=== PATIENT | female | born 1970 | race Caucasian/White ===

== ENCOUNTER 2017-04-06 00:58 | Inpatient (IN) | payer OTHER ==
[~2017-04-06] VITALS: Ht 165.1 cm; Wt 104.9 kg
[~2017-04-06 00:58] MED LIST: CALC200T3 PO; HYDR-2666 PO; IBUP200T77 PO
[2017-04-06 02:05] LABS: BASO # 0.3 x10^3/uL (0.0-0.2); BASO % 1 % (0-3); EOS % 1 % (0-3); HEMATOCRIT 44.9 % (36.0-47.0); HEMOGLOBIN 15.3 g/dL (12.0-15.5); LYMPH # 5.7 x10^3/uL (1.0-4.8); LYMPH % 25 % (24-48); MEAN CORPUSCULAR HEMOGLOBIN 32 pg (25-35); MEAN CORPUSCULAR HGB CONC 34 g/dL (31-37); MEAN CORPUSCULAR VOLUME 94 fL (79-100); MONO % 7 % (0-9); NEUT % 66 % (31-73); PLATELET COUNT 353 x10^3/uL (140-400); RED BLOOD COUNT 4.76 x10^6/uL (3.50-5.40); WHITE BLOOD COUNT 23.1 x10^3/uL (4.0-11.0)
[2017-04-06 02:33] LABS: BILIRUBIN,URINE NEGATIVE (NEG); GLUCOSE,URINE NEGATIVE (NEG); NITRITE,URINE NEGATIVE (NEG); PH,URINE 5.5; PROTEIN,URINE 100 mg/dL (NEG-TRACE)
[2017-04-06 02:35] LABS: RBC,URINE TNTC /HPF (0-2)
[2017-04-06 02:35] LABS: CALCIUM 8.6 mg/dL (8.5-10.1); CREATININE 0.7 mg/dL (0.6-1.0); GFR 90.9; POTASSIUM 3.4 mmol/L (3.5-5.1)
[2017-04-06 02:36] LABS: BACTERIA,URINE FEW /HPF (0-FEW); SQUAMOUS EPITHELIAL CELL,UR FEW /LPF; WBC,URINE >40 /HPF (0-4)
[2017-04-06 02:41] LABS: ALBUMIN 3.3 g/dL (3.4-5.0); ALBUMIN/GLOBULIN RATIO 0.9 (1.0-1.7); TOTAL BILIRUBIN 0.3 mg/dL (0.2-1.0); TOTAL PROTEIN 6.9 g/dL (6.4-8.2)
--- NOTE | 2017-04-06 03:18 | RAD ---
PROCEDURE CT abdomen pelvis without contrast. HISTORY Bilateral flank and lower abdominal pain. TECHNIQUE Helical CT imaging of the abdomen and pelvis is performed without IV or oral contrast. PQRS: One or more the following individualized dose reduction techniques were utilized for the study: 1. Automated exposure control. 2. Adjustment of the mA and/or kV according to patient size. 3. Use of iterative reconstruction technique. COMPARISON CT abdomen and pelvis with and without contrast, June 27, 2016. FINDINGS Stable 5 millimeter nodule left lower lobe, image 12. Lung bases otherwise clear. Cardiac size normal. Cholecystectomy. The liver, spleen, pancreas, and right adrenal gland are normal. Stable left adrenal adenoma measuring up to 3.6 cm. No renal, ureteral, or bladder calculus. No hydronephrosis or perinephric stranding. Stomach unremarkable. Tiny fat containing umbilical hernia. No dilated small bowel. The appendix is normal. There may be mild wall thickening in the transverse and descending colon and sigmoid colon. Portions of colon not well distended. No surrounding inflammation is seen. No abdominal adenopathy or free fluid. There are bilateral fallopian tube occlusion devices. Uterus appears stable. There is fluid density in the vagina, nonspecific. No pelvic free fluid. Vacuum disc phenomenon L5/S1. IMPRESSION 1. Cannot exclude mild wall thickening in the transverse, descending, and sigmoid colon. There may be mild colitis, infectious or inflammatory bowel disease. 2. Fluid density distends the vagina, nonspecific. 3. No obstructive uropathy. 4. Stable left adrenal adenoma. 5. Stable 5 millimeter nodule in the left lower lobe. Electronically signed by: Sage Kiran MD (April 06, 2017 03:16:12)
[2017-04-06] MEDS ORDERED: KETOROLAC 15 MG/ML VIAL. IV ONE (03:45)
[2017-04-06] MEDS ORDERED: HYDROmorphone 2 MG/ML VIAL IV ONE (03:45)
[2017-04-06] MEDS ORDERED: ONDANSETRON PF 4 MG/2 ML VIAL. IV ONE (03:45)
[2017-04-06] MEDS ORDERED: ONDANSETRON PF 4 MG/2 ML VIAL. IV PRN (04:00)
[2017-04-06] MEDS ORDERED: IV NORMAL SALINE 1000ML BAG 1,000 ML IV ONE (04:00)
[2017-04-06] MEDS ORDERED: ACETAMINOPHEN 325 MG TABLET. PO PRN (04:00)
[2017-04-06] MEDS ORDERED: IV NORMAL SALINE 1000ML BAG 1,000 ML IV SCH (04:00)
[2017-04-06] MEDS ORDERED: fentaNYL PF VIAL 100 MCG/2 ML VIAL IV PRN (04:00)
--- NOTE | 2017-04-06 04:00 | ACF ---
Admission Forms Criteria ABDOMINAL PAIN Clinical Indications for Admission to Inpatient Care (Place 'X' for any and all applicable criteria): Admission is indicated for ANY ONE of the following(1)(2)(3)(4)(5): [X]I. Inpatient admission required rather than observation care (Also use Abdominal Pain: Observation Care, as appropriate) because of ANY ONE of the following: [ ]a) Severe pain requiring acute inpatient management [ ]b) Identification of etiology/finding that requires inpatient care (eg, aortic dissection, free air) [ ]c) Absent bowel sounds with complete ileus(6) [ ]d) Suspected toxic megacolon [ ]e) Severe electrolyte abnormalities requiring inpatient care [X]f) High fever or infection requiring inpatient admission as indicated by ANY ONE of following(7)(8): [X] i) Appropriate outpatient or observational care antimicrobial treatment unavailable, not effective, or not feasible [ ] ii) Documented bacteremia [ ] iii) Temperature > 104.9 degrees F (oral) [ ] iv) T >103.1 F (oral) or < 96.8 F(rectal) that does not respond to all emergency treatment measures [ ]g) Signs of intestinal obstruction [B] [ ]h) Hemodynamic instability [ ]i) IV fluid to replace significant ongoing losses (greater than 3 L/m2 per day) (12)(13) [ ]j) Percutaneous or open drainage (eg, abscess, biliary tract ) procedures [ ]k) Parenteral nutrition regimen that must be implemented on inpatient basis [ ]l) Other condition,treatment or monitoring requiring inpatient admission. [ ]II. Peritoneal signs present [ ]III. Surgery needed that cannot be performed on an ambulatory basis. [ ]IV. Evaluation requires patient to not eat or drink for extended period ( eg, more than 24 hours). [ ]V. Contraindications and/or Inappropriate clinical situations for Observational Care in patients with abdominal pain, when ANY ONE of the following is required: [ ]a) Thorough evaluation is required to prevent catastrophic events due to delays in diagnosing (e.g.Mesenteric ischemia) 1,3 [ ]b) Patient with severe pathology or with chronic symptoms unlikely to improve in the ED stay (3) [ ]. General contraindications and/or Inappropriate clinical situations for Observational Care in patients with abdominal pain, when ANY ONE of the following is required: [ ]a) Prediction of prolongation of LOS based on ANY ONE of the following may be considered as a contraindication for observational care 2, 3, 4, 5, 6, 7, 8, 9, 10, 11 [ ]i) Age > 65 yrs. [ ]ii) Patient arriving by ambulance [ ]iii) Patient with high acuity [ ]iv) Patient requiring vital sign monitoring [ ]v) Patient on IV medication [ ]b) Systolic blood pressures 180mmHg 3,12 [ ]c) Patient with altered mental status including delirium and other alteration of consciousness, (3) [ ]d) Patient whose discharge disposition will be to a snf home or rehabilitation home should not be managed in Emergency Department Observation Unit. CMS rule requires 3 days hospital stay before such placement.3,13 [ ]e) Patient with failure to thrive due to broad array of etiologies 3,16,17 [ ]f) Inability to ambulate 3,14 Extended stay beyond goal length of stay may be needed for(2)(3): [ ]a) Persistent abdominal pain with suspected intra-abdominal process [ ]b) Diagnosed condition requiring continued stay (e.g., pancreatitis, complicated diverticulitis) [ ]c) Surgery (e.g., colectomy) The original [facility] content created by [employer] has been revised. The portions of the content which have been revised are identified through the use of italic text or in bold, and [facility] has neither reviewed nor approved the modified material.All other unmodified content is copyright [employer]. Please see references footnoted in the original [facility] edition 2016 Admission Criteria Met?: Yes RERE SOLIMAN April 06, 2017 04:00
--- NOTE | 2017-04-06 04:36 | PHYS DOC ---
Past Medical History Past Medical History: Diverticulitis, Hypertension, Other Additional Past Medical Histor: knee pain, tumor on ADRENAL GLAND Past Surgical History: Cholecystectomy, Tubal ligation Additional Past Surgical Histo: right knee surgery Alcohol Use: None Drug Use: None Adult General Chief Complaint Chief Complaint: ABDOMINAL PAIN HPI HPI Patient is a 46 year old female who presents today complaining of left lower quadrant abdominal pain that started this morning. Patient reports she has a history of hypertension, status post cholecystectomy, history of tumors on her adrenal glands, patient reports she smokes. Alcohol or drugs. Patient denies any history of diabetes CHF COPD CAD liver lung or kidney problems. Patient reports she was in her usual state of health until early this morning. Patient has any fevers shakes chills. Patient reports she had nausea vomiting upon arrival to the hospital. Patient denies any diarrhea. Patient has any chest pain or shortness of breath. Patient reports mild dysuria no frequency or urgency. Patient denies any hematuria. Patient reports she is currently on her menses. Patient reports her last menstrual period was end of January. Patient's ER workup was significant for markedly elevated white blood cell count. Patient had a white blood cell count 23.1 with no left shift. Patient had a bicarbonate of 18 with an anion gap of 15. Patient's CT scan revealed possible plan colitis which was mild. There was no evidence of any kidney stones or urinary obstruction on the CT scan. Patient's abdominal exam was soft nondistended no rebound or guarding. Normal active bowel sounds. Patient has tenderness to palpation to her left lower quadrant. Patient did not exhibit any signs or symptoms that will be consistent with an acute surgical abdomen. Patient did have some tenderness to palpation to her left flank as well too. Patient tenderness to palpation in her suprapubic region. Patient does not have any tenderness at McBurney's point. There is no Reynoso sign. A/P #1. Abdominal pain etiology unclear however patient did have a UTI on her labs. Patient greater than 40 daily disease per high-power field and too numerous to count RBCs. Given the patient's significantly elevated WBC count her persistent abdominal pain and her abnormal UA patient was given 1 g of IV Rocephin and will be admitted for IV antibiotics. Another possibility of the patient abdominal pain at this questionable wall edema in her transverse and descending colon. Patient has no signs or symptoms of diarrhea therefore my suspicion for this is much less likely. Patient was given a dose of Flagyl 500 mg IV to cover her for any kind of colitis semi-be percent. Review of Systems Review of Systems Constitutional: Denies fever or chills [] Eyes: Denies change in visual acuity, redness, or eye pain [] All other review systems are negative except as documented in the history of present illness portion. Current Medications Current Medications Current Medications Medications (Trade) Dose Ordered Sig/Darren Start Time Stop Time Status Last Admin Dose Admin Acetaminophen (Tylenol) 650 mg PRN Q4HRS PRN 04/06/17 04:00 04/07/17 03:59 Ceftriaxone Sodium 50 ml @ 100 mls/hr 1X ONCE 04/06/17 03:45 04/06/17 04:14 DC 04/06/17 04:01 100 MLS/HR Fentanyl Citrate (Fentanyl 2ml Vial) 50 mcg PRN Q2HR PRN 04/06/17 04:00 04/07/17 03:59 Hydromorphone HCl (Dilaudid) 0.5 mg 1X ONCE 04/06/17 03:45 04/06/17 03:46 DC Ketorolac Tromethamine (Toradol) 15 mg 1X ONCE 04/06/17 03:45 04/06/17 03:46 DC Metronidazole 100 ml @ 100 mls/hr 1X ONCE 04/06/17 04:00 04/06/17 04:59 04/06/17 04:01 100 MLS/HR Ondansetron HCl (Zofran) 4 mg PRN Q8HRS PRN 04/06/17 04:00 04/07/17 03:59 Sodium Chloride 1,000 ml @ 1,000 mls/hr 1X ONCE 04/06/17 04:00 04/06/17 04:59 04/06/17 04:30 1,000 MLS/HR Allergies Allergies Allergies Coded Allergies Type Severity Reaction Last Updated Verified ciprofloxacin Allergy Intermediate Hives 07/22/15 No adhesive Allergy Mild 06/12/14 No promethazine Adverse Reaction Intermediate SHAKES 07/22/15 No Physical Exam Physical Exam Constitutional: Well developed, well nourished, no acute distress, non-toxic appearance. [] HENT: Normocephalic, atraumatic, bilateral external ears normal, oropharynx moist, no oral exudates, nose normal. [] Eyes: PERRLA, EOMI, conjunctiva normal, no discharge. [] Neck: Normal range of motion, no tenderness, supple, no stridor. [] Cardiovascular:Heart rate regular rhythm, no murmur [] Lungs & Thorax: Bilateral breath sounds clear to auscultation [] Abdomen: Bowel sounds normal, soft, see above. Skin: Warm, dry, no erythema, no rash. [] Back: No tenderness, no CVA tenderness. [] Extremities: No tenderness, no cyanosis, no clubbing, ROM intact, no edema. [] Neurologic: Alert and oriented X 3, normal motor function, normal sensory function, no focal deficits noted. [] Psychologic: Affect normal, judgement normal, mood normal. [] Current Patient Data Vital Signs Vital Signs Date Time Temp Pulse Resp B/P (MAP) Pulse Ox O2 Delivery O2 Flow Rate FiO2 04/06/17 01:23 98.6 86 24 160/107 (124) 98 Room Air 98.6 Lab Values Laboratory Tests Test 04/06/17 01:29 04/06/17 01:50 White Blood Count 23.1 x10^3/uL (4.0-11.0) H Red Blood Count 4.76 x10^6/uL (3.50-5.40) Hemoglobin 15.3 g/dL (12.0-15.5) Hematocrit 44.9 % (36.0-47.0) Mean Corpuscular Volume 94 fL (79-100) Mean Corpuscular Hemoglobin 32 pg (25-35) Mean Corpuscular Hemoglobin Concent 34 g/dL (31-37) Red Cell Distribution Width 13.0 % (11.5-14.5) Platelet Count 353 x10^3/uL (140-400) Neutrophils (%) (Auto) 66 % (31-73) Lymphocytes (%) (Auto) 25 % (24-48) Monocytes (%) (Auto) 7 % (0-9) Eosinophils (%) (Auto) 1 % (0-3) Basophils (%) (Auto) 1 % (0-3) Neutrophils # (Auto) 15.3 x10^3uL (1.8-7.7) H Lymphocytes # (Auto) 5.7 x10^3/uL (1.0-4.8) H Monocytes # (Auto) 1.7 x10^3/uL (0.0-1.1) H Eosinophils # (Auto) 0.2 x10^3/uL (0.0-0.7) Basophils # (Auto) 0.3 x10^3/uL (0.0-0.2) H Platelet Estimate Pending Sodium Level 136 mmol/L (136-145) Potassium Level 3.4 mmol/L (3.5-5.1) L Chloride Level 103 mmol/L (98-107) Carbon Dioxide Level 18 mmol/L (21-32) L Anion Gap 15 (6-14) H Blood Urea Nitrogen 12 mg/dL (7-20) Creatinine 0.7 mg/dL (0.6-1.0) Estimated GFR (Cockcroft-Gault) 90.9 BUN/Creatinine Ratio 17 (6-20) Glucose Level 137 mg/dL (70-99) H Calcium Level 8.6 mg/dL (8.5-10.1) Total Bilirubin 0.3 mg/dL (0.2-1.0) Aspartate Amino Transferase (AST) 14 U/L (15-37) L Alanine Aminotransferase (ALT) 15 U/L (14-59) Alkaline Phosphatase 77 U/L (46-116) Total Protein 6.9 g/dL (6.4-8.2) Albumin 3.3 g/dL (3.4-5.0) L Albumin/Globulin Ratio 0.9 (1.0-1.7) L Lipase 85 U/L (73-393) Urine Collection Type Unknown Urine Color Red Urine Clarity Bloody Urine pH 5.5 Urine Specific [place] 1.025 Urine Protein 100 mg/dL (NEG-TRACE) Urine Glucose (UA) Negative mg/dL (NEG) Urine Ketones (Stick) 15 mg/dL (NEG) Urine Blood Large (NEG) Urine Nitrite Negative (NEG) Urine Bilirubin Negative (NEG) Urine Urobilinogen Dipstick 1.0 mg/dL (0.2 mg/dL) Urine Leukocyte Esterase Small (NEG) Urine RBC Tntc /HPF (0-2) Urine WBC >40 /HPF (0-4) Urine Squamous Epithelial Cells Few /LPF Urine Bacteria Few /HPF (0-FEW) Urine Mucus Mod /LPF Laboratory Tests 04/06/17 01:29 Laboratory Tests 04/06/17 01:29 EKG EKG [] Radiology/Procedures Radiology/Procedures [] Course & Med Decision Making Course & Med Decision Making Pertinent Labs and Imaging studies reviewed. (See chart for details) [] Dragon Disclaimer Dragon Disclaimer This electronic medical record was generated, in whole or in part, using a voice recognition dictation system. Departure Departure Impression: Primary Impression: Abdominal pain Additional Impressions: Urinary tract infection Sepsis Dehydration Leukocytosis Disposition: ADMITTED INPATIENT Admitting Physician: Claire Snowden Condition: GUARDED Referrals: NO PCP (PCP) Problem Qualifiers Primary Impression: Abdominal pain Abdominal location: left lower quadrant Qualified Codes: R10.32 - Left lower quadrant pain Additional Impressions: Urinary tract infection Urinary tract infection type: acute pyelonephritis Qualified Codes: N10 - Acute pyelonephritis Sepsis Sepsis type: sepsis due to unspecified organism Qualified Codes: A41.9 - Sepsis, unspecified organism Leukocytosis Leukocytosis type: unspecified Qualified Codes: D72.829 - Elevated white blood cell count, unspecified BEE MCCALLUM MD April 06, 2017 04:36
[2017-04-06 04:57] LABS: % BASOS 1 % (0-3); PLT ESTIMATE ADEQUATE (ADEQUATE)
[2017-04-06 05:06] LABS: NEG OBC UR NEG; POS OBC UR POS
[2017-04-06 06:45] VITALS: BP 135/94
[2017-04-06 07:00] VITALS: BP 135/94
[2017-04-06] MEDS ORDERED: RANI300C PO (09:28)
[2017-04-06] MEDS ORDERED: LISI-334 PO (09:28)
--- NOTE | 2017-04-06 09:42 | PDOC2 ---
GI CONSULT Reason For Consult: Abd pain HPI: HPI: 46 y/o female admitted through the ER. Reports some early satiety and epigastric pain radiating to periumbilical area after eating beginning Thursday. [place] better Thursday. On Thursday (yesterday), had some diarrhea (h/o this post- prandially since cholecystectomy), heartburn w/ retching after eating grilled food at her brother's house, and then developed sharp suprapubic pain, sweating , and actually felt a little constipated. While in ER, passed a large menstrual blood clot ("the size of a McDouble burger") and pain resolved. Has felt fine since, is eating w/o issue. H/o heavy periods, was supposed to have an ablation recently (but didn't). H/o GERD, takes her son's ranitidine Rx QHS PRN for heartburn after eating grilled foods or nocturnal reflux. Takes ibuprofen QD for back pain. Has gained weight since last year. No previous EGD or colonoscopy. Labs significant for WBC 23.1. CT unable to exclude mild wall thickening the the transverse, descending, and sigmoid colon, stable left adrenal adenoma, and stable LLL nodule. Given Rocephin (for UTI) and Flagyl IV in ER. PMH: PMH: HTN, HLD, left adrenal adenoma, chronic back/knee pain, cholecystectomy, right knee surgery, bilateral breast surgeries (cyst removal), tubal ligation FH: Family History: No pertinent hx (denies GI cancers) Social History: Smoke: 1 pack per day ALCOHOL: none Drugs: None ROS: GEN: +sweats HEENT: Denies blurred vision, sore throat CV: Denies chest pain RESP: Denies shortness of air, cough GI: Per HPI : Denies hematuria, dysuria ENDO: +weight gain NEURO: Denies confusion, dizziness MSK: +back pain SKIN: Denies jaundice, pruritus Vitals: Vitals: Vital Signs Date Time Temp Pulse Resp B/P (MAP) Pulse Ox O2 Delivery O2 Flow Rate FiO2 04/06/17 07:00 98.1 101 18 135/94 (108) 95 Room Air 98.1 Labs: Labs: Laboratory Tests Test 04/06/17 01:29 04/06/17 01:50 04/06/17 06:25 White Blood Count 23.1 x10^3/uL (4.0-11.0) Red Blood Count 4.76 x10^6/uL (3.50-5.40) Hemoglobin 15.3 g/dL (12.0-15.5) Hematocrit 44.9 % (36.0-47.0) Mean Corpuscular Volume 94 fL (79-100) Mean Corpuscular Hemoglobin 32 pg (25-35) Mean Corpuscular Hemoglobin Concent 34 g/dL (31-37) Red Cell Distribution Width 13.0 % (11.5-14.5) Platelet Count 353 x10^3/uL (140-400) Neutrophils (%) (Auto) 66 % (31-73) Lymphocytes (%) (Auto) 25 % (24-48) Monocytes (%) (Auto) 7 % (0-9) Eosinophils (%) (Auto) 1 % (0-3) Basophils (%) (Auto) 1 % (0-3) Neutrophils # (Auto) 15.3 x10^3uL (1.8-7.7) Lymphocytes # (Auto) 5.7 x10^3/uL (1.0-4.8) Monocytes # (Auto) 1.7 x10^3/uL (0.0-1.1) Eosinophils # (Auto) 0.2 x10^3/uL (0.0-0.7) Basophils # (Auto) 0.3 x10^3/uL (0.0-0.2) Segmented Neutrophils % 61 % (35-66) Lymphocytes % 32 % (24-48) Monocytes % 6 % (0-10) Basophils % 1 % (0-3) Platelet Estimate Adequate (ADEQUATE) Sodium Level 136 mmol/L (136-145) Potassium Level 3.4 mmol/L (3.5-5.1) Chloride Level 103 mmol/L (98-107) Carbon Dioxide Level 18 mmol/L (21-32) Anion Gap 15 (6-14) Blood Urea Nitrogen 12 mg/dL (7-20) Creatinine 0.7 mg/dL (0.6-1.0) Estimated GFR (Cockcroft-Gault) 90.9 BUN/Creatinine Ratio 17 (6-20) Glucose Level 137 mg/dL (70-99) Calcium Level 8.6 mg/dL (8.5-10.1) Total Bilirubin 0.3 mg/dL (0.2-1.0) Aspartate Amino Transf (AST/SGOT) 14 U/L (15-37) Alanine Aminotransferase (ALT/SGPT) 15 U/L (14-59) Alkaline Phosphatase 77 U/L (46-116) Total Protein 6.9 g/dL (6.4-8.2) Albumin 3.3 g/dL (3.4-5.0) Albumin/Globulin Ratio 0.9 (1.0-1.7) Lipase 85 U/L (73-393) Urine Collection Type Unknown Urine Color Red Urine Clarity Bloody Urine pH 5.5 Urine Specific [place] 1.025 Urine Protein 100 mg/dL (NEG-TRACE) Urine Glucose (UA) Negative mg/dL (NEG) Urine Ketones (Stick) 15 mg/dL (NEG) Urine Blood Large (NEG) Urine Nitrite Negative (NEG) Urine Bilirubin Negative (NEG) Urine Urobilinogen Dipstick 1.0 mg/dL (0.2 mg/dL) Urine Leukocyte Esterase Small (NEG) Urine RBC Tntc /HPF (0-2) Urine WBC >40 /HPF (0-4) Urine Squamous Epithelial Cells Few /LPF Urine Bacteria Few /HPF (0-FEW) Urine Mucus Mod /LPF Urine Test Negative (NEG) Lactic Acid Level 1.6 mmol/L (0.4-2.0) Allergies: Coded Allergies: ciprofloxacin (Unverified Allergy, Intermediate, Hives, 07/22/15) hives adhesive (Unverified Allergy, Mild, 06/12/14) rash promethazine (Unverified Adverse Reaction, Intermediate, SHAKES, 07/22/15) shakes Medications: Current Medications Medications (Trade) Dose Ordered Sig/Darren Route PRN Reason Start Time Stop Time Status Last Admin Dose Admin Ceftriaxone Sodium 50 ml @ 100 mls/hr 1X ONCE IV 04/06/17 03:45 04/06/17 04:14 DC 04/06/17 04:01 Metronidazole 100 ml @ 100 mls/hr 1X ONCE IV 04/06/17 04:00 04/06/17 04:59 DC 04/06/17 04:01 Sodium Chloride 1,000 ml @ 1,000 mls/hr 1X ONCE IV 04/06/17 04:00 04/06/17 04:59 DC 04/06/17 04:30 Imaging: Imaging: CT A/P w/o contrast 04/06/17 1. Cannot exclude mild wall thickening in the transverse, descending, and sigmoid colon. There may be mild colitis, infectious or inflammatory bowel disease. 2. Fluid density distends the vagina, nonspecific. 3. No obstructive uropathy. 4. Stable left adrenal adenoma. 5. Stable 5 millimeter nodule in the left lower lobe. PE: GEN: NAD, overweight HEENT: Atraumatic, PERRL LUNGS: CTAB HEART: RRR ABD: NABS, S/ND/NT EXTREMITY: No edema SKIN: No rashes, no jaundice NEURO/PSYCH: A & O 3 A/P: A/P: Suprapubic pain - resolved Abnormal CT A/P -as above GERD -frequent symptoms ---> after eating grilled foods, nocturnal reflux -H2 duc QHS PRN, no previous EGD Irregular bowel habits Leukocytosis, UTI -given Rocephin in ER -per primary CRC screen -no previous colonoscopy, average risk -- ?pain related to menses/UTI "Diarrhea" seems stable - not out of ordinary since cholecystectomy. Would treat GERD more aggressively w/ PPI, particularly w/ regular NSAID use. Consider outpatient EGD. F/u w/ ED TEACHER re: uterine ablation. DAVON HOOVER April 06, 2017 09:42
[2017-04-06 11:00] VITALS: BP 131/97
[2017-04-06] MEDS: PANTOPRAZOLE 40 MG TABLET.DR. PO SCH (12:40)
--- NOTE | 2017-04-06 14:13 | HP ---
ADMIT DATE: 04/06/2017 CHIEF COMPLAINT: Abdominal pain. HISTORY OF PRESENT ILLNESS: The patient is a pleasant 46-year-old female presented with abdominal pain. She rates it 7/10. She has associated nausea. She had a low grade fever. While in the ER, she is noted to have urinary tract infection with pyelonephritis. She has now been admitted. We will start on IV antibiotics and IV fluids. PAST MEDICAL HISTORY: Previous UTIs. ALLERGIES: None. FAMILY HISTORY: Diabetes. SOCIAL HISTORY: She does not drink, smoke or take drugs. MEDICATIONS: Reviewed, please refer to the MRAD. REVIEW OF SYSTEMS: GENERAL: No history of weight change, weakness or fevers. SKIN: No bruising, hair changes or rashes. EYES: No blurred, double or loss of vision. NOSE AND THROAT: No history of nosebleeds, hoarseness or sore throat. HEART: No history of palpitations, chest pain or shortness of breath on exertion. LUNGS: Denies cough, hemoptysis, wheezing or shortness of breath. GASTROINTESTINAL: The patient complaints of abdominal pain. GENITOURINARY: No history of frequency, urgency, hesitancy or nocturia. NEUROLOGIC: Denies history of numbness, tingling, tremor or weakness. PSYCHIATRIC: No history of panic, anxiety or depression. ENDOCRINE: No history of heat or cold intolerance, polyuria or polydipsia. EXTREMITIES: Denies muscle weakness, joint pain, pain on walking or stiffness. PHYSICAL EXAMINATION: VITAL SIGNS: Temperature 99.8, pulse 98, respirations 18, blood pressure 144/60. GENERAL: She is alert, cooperative. HEART: Normal S1, S2. LUNGS: Clear. ABDOMEN: Soft. Decreased bowel sounds, tender. EXTREMITIES: No edema. SKIN: No rashes. PSYCHIATRIC: She is stable. VASCULAR: Good capillary refill. ENDOCRINE: No thyromegaly. LYMPHATICS: No cervical nodes. HEMATOPOIETIC: No bruising. LABORATORY DATA: White count 23. ASSESSMENT AND PLAN: Pyelonephritis. The patient has been admitted. We will start IV antibiotics, IV fluids. Continue home medicines, encouraged p.o. intake, PT, OT, frequent labs. KEKE ROE DO DR: ANTHONY/yue JOB#: [id number] / [id number]
[2017-04-06] MEDS: metroNIDAZOLE 500 MG TABLET PO SCH ×2 (14:34→21:29)
[2017-04-06 15:00] VITALS: BP 139/83
[2017-04-06 19:23] VITALS: BP 137/99
[2017-04-07 03:00] VITALS: BP 130/62
[2017-04-07 05:26] LABS: BASO % 1 % (0-3); EOS % 2 % (0-3); HEMATOCRIT 40.1 % (36.0-47.0); LYMPH # 3.5 x10^3/uL (1.0-4.8); LYMPH % 34 % (24-48); MEAN CORPUSCULAR HEMOGLOBIN 33 pg (25-35); MEAN CORPUSCULAR HGB CONC 35 g/dL (31-37); MEAN CORPUSCULAR VOLUME 93 fL (79-100); MONO % 10 % (0-9); NEUT % 54 % (31-73); PLATELET COUNT 281 x10^3/uL (140-400); RED CELL DISTRIBUTION WIDTH 12.8 % (11.5-14.5); WHITE BLOOD COUNT 10.3 x10^3/uL (4.0-11.0)
[2017-04-07] MEDS: metroNIDAZOLE 500 MG TABLET PO SCH (06:16)
[2017-04-07] MEDS: PANTOPRAZOLE 40 MG TABLET.DR. PO SCH (06:16)
[2017-04-07 07:00] VITALS: BP 138/88
--- NOTE | 2017-04-07 11:38 | PDOC ---
PROGRESS NOTES Chief Complaint Chief Complaint UTI Abdominal pain History of Present Illness History of Present Illness Ms. Vargas states that she feels better today and is ready to go home. We discussed care with nurse. Vitals Vitals Vital Signs Date Time Temp Pulse Resp B/P (MAP) Pulse Ox O2 Delivery O2 Flow Rate FiO2 04/07/17 08:00 Room Air 04/07/17 07:00 98.1 79 18 138/88 (105) 97 98.1 Physical Exam General: Alert, Cooperative, No acute distress Heart: Regular rate, Normal S1, Normal S2 Lungs: Clear Abdomen: Normal bowel sounds, Soft, No tenderness Extremities: No clubbing, No cyanosis, No edema Skin: No rashes, No breakdown Labs LABS Laboratory Tests Test 04/07/17 04:55 White Blood Count 10.3 x10^3/uL (4.0-11.0) Red Blood Count 4.30 x10^6/uL (3.50-5.40) Hemoglobin 14.0 g/dL (12.0-15.5) Hematocrit 40.1 % (36.0-47.0) Mean Corpuscular Volume 93 fL (79-100) Mean Corpuscular Hemoglobin 33 pg (25-35) Mean Corpuscular Hemoglobin Concent 35 g/dL (31-37) Red Cell Distribution Width 12.8 % (11.5-14.5) Platelet Count 281 x10^3/uL (140-400) Neutrophils (%) (Auto) 54 % (31-73) Lymphocytes (%) (Auto) 34 % (24-48) Monocytes (%) (Auto) 10 % (0-9) Eosinophils (%) (Auto) 2 % (0-3) Basophils (%) (Auto) 1 % (0-3) Neutrophils # (Auto) 5.5 x10^3uL (1.8-7.7) Lymphocytes # (Auto) 3.5 x10^3/uL (1.0-4.8) Monocytes # (Auto) 1.0 x10^3/uL (0.0-1.1) Eosinophils # (Auto) 0.2 x10^3/uL (0.0-0.7) Basophils # (Auto) 0.0 x10^3/uL (0.0-0.2) Review of Systems Review of Systems General: denies weakness GI: improved abdominal pain, denies N/V/D/C Assessment and Plan Assessmemt and Plan Problems Medical Problems: (1) Abdominal pain Status: Acute (2) Dehydration Status: Acute (3) Leukocytosis Status: Acute (4) Sepsis Status: Acute (5) Urinary tract infection Status: Acute UTI Abdominal pain Plan: 1. GI considering outpatient EGD later this month after HTN controlled 2. Follow up with Gynecology due to abdominal pain improving after passage of blood clot, may need endometrial ablation 3. Discharge today on oral antibiotics 4. Continue Zantac at home 5. Follow up with PCP Problems: Comment Review of Relevant I have reviewed the following items viviana (where applicable) has been applied. Labs Laboratory Tests Test 04/06/17 01:29 04/06/17 01:50 04/06/17 06:25 04/07/17 04:55 White Blood Count 23.1 x10^3/uL (4.0-11.0) 10.3 x10^3/uL (4.0-11.0) Red Blood Count 4.76 x10^6/uL (3.50-5.40) 4.30 x10^6/uL (3.50-5.40) Hemoglobin 15.3 g/dL (12.0-15.5) 14.0 g/dL (12.0-15.5) Hematocrit 44.9 % (36.0-47.0) 40.1 % (36.0-47.0) Mean Corpuscular Volume 94 fL (79-100) 93 fL (79-100) Mean Corpuscular Hemoglobin 32 pg (25-35) 33 pg (25-35) Mean Corpuscular Hemoglobin Concent 34 g/dL (31-37) 35 g/dL (31-37) Red Cell Distribution Width 13.0 % (11.5-14.5) 12.8 % (11.5-14.5) Platelet Count 353 x10^3/uL (140-400) 281 x10^3/uL (140-400) Neutrophils (%) (Auto) 66 % (31-73) 54 % (31-73) Lymphocytes (%) (Auto) 25 % (24-48) 34 % (24-48) Monocytes (%) (Auto) 7 % (0-9) 10 % (0-9) Eosinophils (%) (Auto) 1 % (0-3) 2 % (0-3) Basophils (%) (Auto) 1 % (0-3) 1 % (0-3) Neutrophils # (Auto) 15.3 x10^3uL (1.8-7.7) 5.5 x10^3uL (1.8-7.7) Lymphocytes # (Auto) 5.7 x10^3/uL (1.0-4.8) 3.5 x10^3/uL (1.0-4.8) Monocytes # (Auto) 1.7 x10^3/uL (0.0-1.1) 1.0 x10^3/uL (0.0-1.1) Eosinophils # (Auto) 0.2 x10^3/uL (0.0-0.7) 0.2 x10^3/uL (0.0-0.7) Basophils # (Auto) 0.3 x10^3/uL (0.0-0.2) 0.0 x10^3/uL (0.0-0.2) Segmented Neutrophils % 61 % (35-66) Lymphocytes % 32 % (24-48) Monocytes % 6 % (0-10) Basophils % 1 % (0-3) Platelet Estimate Adequate (ADEQUATE) Sodium Level 136 mmol/L (136-145) Potassium Level 3.4 mmol/L (3.5-5.1) Chloride Level 103 mmol/L (98-107) Carbon Dioxide Level 18 mmol/L (21-32) Anion Gap 15 (6-14) Blood Urea Nitrogen 12 mg/dL (7-20) Creatinine 0.7 mg/dL (0.6-1.0) Estimated GFR (Cockcroft-Gault) 90.9 BUN/Creatinine Ratio 17 (6-20) Glucose Level 137 mg/dL (70-99) Calcium Level 8.6 mg/dL (8.5-10.1) Total Bilirubin 0.3 mg/dL (0.2-1.0) Aspartate Amino Transf (AST/SGOT) 14 U/L (15-37) Alanine Aminotransferase (ALT/SGPT) 15 U/L (14-59) Alkaline Phosphatase 77 U/L (46-116) Total Protein 6.9 g/dL (6.4-8.2) Albumin 3.3 g/dL (3.4-5.0) Albumin/Globulin Ratio 0.9 (1.0-1.7) Lipase 85 U/L (73-393) Urine Collection Type Unknown Urine Color Red Urine Clarity Bloody Urine pH 5.5 Urine Specific [place] 1.025 Urine Protein 100 mg/dL (NEG-TRACE) Urine Glucose (UA) Negative mg/dL (NEG) Urine Ketones (Stick) 15 mg/dL (NEG) Urine Blood Large (NEG) Urine Nitrite Negative (NEG) Urine Bilirubin Negative (NEG) Urine Urobilinogen Dipstick 1.0 mg/dL (0.2 mg/dL) Urine Leukocyte Esterase Small (NEG) Urine RBC Tntc /HPF (0-2) Urine WBC >40 /HPF (0-4) Urine Squamous Epithelial Cells Few /LPF Urine Bacteria Few /HPF (0-FEW) Urine Mucus Mod /LPF Urine Test Negative (NEG) Lactic Acid Level 1.6 mmol/L (0.4-2.0) Laboratory Tests Test 04/07/17 04:55 White Blood Count 10.3 x10^3/uL (4.0-11.0) Red Blood Count 4.30 x10^6/uL (3.50-5.40) Hemoglobin 14.0 g/dL (12.0-15.5) Hematocrit 40.1 % (36.0-47.0) Mean Corpuscular Volume 93 fL (79-100) Mean Corpuscular Hemoglobin 33 pg (25-35) Mean Corpuscular Hemoglobin Concent 35 g/dL (31-37) Red Cell Distribution Width 12.8 % (11.5-14.5) Platelet Count 281 x10^3/uL (140-400) Neutrophils (%) (Auto) 54 % (31-73) Lymphocytes (%) (Auto) 34 % (24-48) Monocytes (%) (Auto) 10 % (0-9) Eosinophils (%) (Auto) 2 % (0-3) Basophils (%) (Auto) 1 % (0-3) Neutrophils # (Auto) 5.5 x10^3uL (1.8-7.7) Lymphocytes # (Auto) 3.5 x10^3/uL (1.0-4.8) Monocytes # (Auto) 1.0 x10^3/uL (0.0-1.1) Eosinophils # (Auto) 0.2 x10^3/uL (0.0-0.7) Basophils # (Auto) 0.0 x10^3/uL (0.0-0.2) Microbiology 04/06/17 Blood Culture - Preliminary, Resulted NO GROWTH AFTER 1 DAY Medications Current Medications Ketorolac Tromethamine (Toradol) 15 mg 1X ONCE IV ; Start 04/06/17 at 03:45; Stop 04/06/17 at 03:46; Status DC Ondansetron HCl (Zofran) 4 mg 1X ONCE IV ; Start 04/06/17 at 03:45; Stop at 03:46; Status DC Hydromorphone HCl (Dilaudid) 0.5 mg 1X ONCE IV ; Start 04/06/17 at 03:45; Stop 04/06/17 at 03:46; Status DC Ceftriaxone Sodium 50 ml @ 100 mls/hr 1X ONCE IV Last administered on 04:01; Start 04/06/17 at 03:45; Stop 04/06/17 at 04:14; Status DC Metronidazole 100 ml @ 100 mls/hr 1X ONCE IV Last administered on 04/06/17 04 :01; Start 04/06/17 at 04:00; Stop 04/06/17 at 04:59; Status DC Ondansetron HCl (Zofran) 4 mg PRN Q8HRS PRN IV NAUSEA/VOMITING; Start 04/06/17 at 04:00; Stop 04/07/17 at 03:59; Status DC Fentanyl Citrate (Fentanyl 2ml Vial) 50 mcg PRN Q2HR PRN IV PAIN; Start at 04:00; Stop 04/07/17 at 03:59; Status DC Sodium Chloride 1,000 ml @ 0 mls/hr Q0M IV ; Start 04/06/17 at 04:00; Stop at 03:59; Status DC Acetaminophen (Tylenol) 650 mg PRN Q4HRS PRN PO FEVER; Start 04/06/17 at 04:00; Stop 04/07/17 at 03:59; Status DC Sodium Chloride 1,000 ml @ 1,000 mls/hr 1X ONCE IV Last administered on 04:30; Start 04/06/17 at 04:00; Stop 04/06/17 at 04:59; Status DC Pantoprazole Sodium (Protonix) 40 mg DAILYAC PO Last administered on 04/07/17 06:16; Start 04/06/17 at 10:00 Ceftriaxone Sodium 1 gm/ Sodium Chloride 50 ml @ 100 mls/hr Q24H IV Last administered on 04/07/17 08:36; Start 04/07/17 at 09:00 Metronidazole (Flagyl) 500 mg Q8HRS PO Last administered on 04/07/17 06:16; Start 04/06/17 at 14:00 Active Scripts Active Reported Ranitidine Hcl 300 Mg Capsule 1 Cap PO DAILY Lisinopril 20 Mg Tablet 1 Tab PO DAILY Tums (Calcium Carbonate) 200 Mg Tab.chew 200 Mg PO PRN 1X PRN Ibuprofen 200 Mg Tablet 800 Mg PO PRN Q12HRS PRN Vitals/I & O Vital Sign - Last 24 Hours 04/06/17 04/06/17 04/06/17 04/07/17 15:00 19:23 20:00 03:00 Temp 98.3 98.9 98.8 98.3 98.9 98.8 Pulse 84 78 74 Resp 20 18 18 B/P (MAP) 139/83 (101) 137/99 (112) 130/62 (84) Pulse Ox 97 97 96 O2 Delivery Room Air Room Air Room Air Room Air 04/07/17 04/07/17 07:00 08:00 Temp 98.1 98.1 Pulse 79 Resp 18 B/P (MAP) 138/88 (105) Pulse Ox 97 O2 Delivery Room Air Room Air Intake and Output 04/06/17 04/06/17 04/07/17 15:00 23:00 07:00 Intake Total 500 ml 0 ml Balance 500 ml 0 ml KEKE ROE III DO April 07, 2017 11:38
== END 2017-04-07 11:41 | disposition home or self-care (01) | DRG 872 ==
LOC: ER 00:58 → 6 SOUTH 03:41
PROVIDERS: ADMIT Internal Medicine; ATTEND Internal Medicine
DX: A41.9 Sepsis, unspecified organism (principal); N12 Tubulo-interstitial nephritis, not specified as acute or chronic; I10 Essential (primary) hypertension; K21.9 Gastro-esophageal reflux disease without esophagitis; F17.210 Nicotine dependence, cigarettes, uncomplicated; E86.0 Dehydration; D72.829 Elevated white blood cell count, unspecified; E78.5 Hyperlipidemia, unspecified; Z83.3 Family history of diabetes mellitus; Z87.440 Personal history of urinary (tract) infections; Z90.49 Acquired absence of other specified parts of digestive tract; Z98.51 Tubal ligation status; Z88.1 Allergy status to other antibiotic agents; Z88.8 Allergy status to other drugs, medicaments and biological substances
CPT/HCPCS: 36415; 74176; 80053; 81001; 81025; 83605; 83690; 85007; 85027; 87040; 87086; 96365; 96368; J0690; J0696; J3490; J7030; 99285-25

== ENCOUNTER → 2017-04-30 | Day surgery (SDC) | payer OTHER ==
[~2017-04-30] MED LIST changes: +ATOR20TA58 PO; +HYDROmorphone 2 MG/ML VIAL IV PRN; +IV RINGERS,LACTATED 1000ML 1,000 ML IV SCH; +LIDOCAINE 1% 1 ML SYRINGE. ID PRN; +LIDOCAINE 2% PF Vial for OR 5 ML VIAL. ONE; +LISI-334 PO; +MORPHINE SULFATE 2 MG/ML DISP.SYRIN. IV PRN; +ONDANSETRON PF 4 MG/2 ML VIAL. IV PRN; +PROPOFOL 20 ML IV ONE; +RANI300C PO; +fentaNYL PF VIAL 100 MCG/2 ML VIAL IV PRN
[2017-04-30 13:14] VITALS: BP 126/79
--- NOTE | 2017-05-01 05:40 | HP ---
ADMIT DATE: 04/30/2017 REFERRING PHYSICIAN: Dr. Hidalgo from [facility]. HISTORY OF PRESENT ILLNESS: A 47-year-old female with past medical history significant for hyperlipidemia, hypertension as well as chronic reflux, is seen with worsening of her symptoms. She has had previous cholecystectomy, increasing symptoms with heartburn and reflux have been noted. She does use nicotine and caffeine as risk factors for reflux, but minimal alcohol. No dysphagia or odynophagia is noted. Has been taking Zantac 300 mg daily. With persistent symptoms, consultation is requested. PAST MEDICAL HISTORY: Hypertension, hyperlipidemia, chronic reflux as well as osteoarthrosis. ALLERGIES: CIPROFLOXACIN, PROMETHAZINE. MEDICATIONS: Include atorvastatin, calcium, ibuprofen, lisinopril and ranitidine. FAMILY AND SOCIAL HISTORY: Significant for breast cancer with an aunt, hypertension with her mother and diabetes with 2 siblings and an uncle. She is a smoker and does not drink. Family history as stated. PAST SURGICAL HISTORY: Knee surgery, tubal ligation, breast surgery and lap azar. REVIEW OF SYSTEMS: Per records. PHYSICAL EXAMINATION: GENERAL: Reveals a well-nourished, well-developed female who is alert and cooperative in no acute distress. VITAL SIGNS: Temp 97.7, pulse 87, respiratory rate is 18. HEENT: Reveals a normocephalic, atraumatic head. Pupils and extraocular muscles not tested. Sclerae anicteric. NECK: Supple. LUNGS: Clear. CARDIOVASCULAR: Reveals S1, S2 without S3, S4 or appreciable murmur. ABDOMEN: Reveals soft abdomen, normal bowel sounds, ____ appreciable hepatosplenomegaly, with right upper quadrant cholecystectomy incision, ____ no epigastric tenderness to deep palpation. EXTREMITIES: Reveals no cyanosis, clubbing or edema. IMPRESSION: Chronic reflux with breakthrough symptoms. Differential includes Starr's, gastroparesis, achalasia, peptic ulcer disease, malignancy. Therefore, recommend upper endoscopy to further assess. Risks and benefits of the procedure including the risk of hemorrhage or perforation have been discussed with the patient who is willing to proceed at this time. CHARISSE BAKER MD DR: DENISE/yue JOB#: [id number] / [id number] madi Hidalgo Dr.
--- NOTE | 2017-05-04 13:49 | PATHOLOGY ---
PATHOLOGY REPORT * * * * * * * * FINAL DIAGNOSIS: Esophageal biopsy, distal esophagus: - Segments of hyperplastic squamous esophageal mucosa consistent with reflux esophagitis. COMMENT: Sections of the distal esophageal biopsy reveal segments of tangentially oriented, hyperplastic squamous esophageal mucosa. The findings are consistent with reflux esophagitis. There is no evidence of Starr's change, dysplasia, or malignancy. REPORT ELECTRONICALLY SIGNED BY: Rd Buckley M.D. DATE/TIME: 05/04/2017 13:49 * * * * * * * * GROSS PATHOLOGY: Received in formalin labeled "Paul Vargas, distal esophageal biopsy," are three segments of lauren soft tissue measuring 0.7 x 0.6 x 0.1 cm in aggregate dimensions and ranging from 0.4 to 0.6 cm in maximum dimension. The specimen is submitted entirely in cassette A1. (CAA; 05/01/2017) INITIAL CPT CODE(S): A; 73807 Professional services performed [place] [address] Technical services performed by [facility] at [address] [place] [address]. SPECIMEN(S) RECEIVED: A.Distal esophagus biopsy CLINICAL HISTORY: Reflux PATIENT: PAUL VARGAS /AGE: 604/30/1970 (Age: 47) PATIENT #: [id number] ALT CASE #: SPECIMEN COLLECTION DATE: 04/30/2017 SPECIMEN RECEIVED DATE: 04/30/2017 [facility] - [address] [place] [address] - PHONE: [phone] * * * END OF REPORT * * *
== END | disposition home or self-care (01) ==
LOC: ENDOS 10:52
PROVIDERS: ATTEND Internal Medicine Gastroenterology
DX: K21.0 Gastro-esophageal reflux disease with esophagitis (principal); K29.50 Unspecified chronic gastritis without bleeding; E78.00 Pure hypercholesterolemia, unspecified; I10 Essential (primary) hypertension; M17.0 Bilateral primary osteoarthritis of knee; E66.9 Obesity, unspecified; Z90.49 Acquired absence of other specified parts of digestive tract; Z72.0 Tobacco use; Z87.01 Personal history of pneumonia (recurrent); Z86.14 Personal history of Methicillin resistant Staphylococcus aureus infection
CPT/HCPCS: 43239; 88305; J2704